=== PATIENT | female | born 1990 ===

== ENCOUNTER → 2017-07-03 | Outpatient (CLI) | payer SELFPAY | LOC: LAB 17:23 | PROVIDERS: ATTEND Emergency Medicine | DX: R30.0 Dysuria (principal) | CPT/HCPCS: 87086; 87088; 87186 ==

== ENCOUNTER 2018-06-24 10:58 | Emergency (ER) | payer BC ==
[2018-06-24] MEDS ORDERED: KETOROLAC TROMETHAMINE INJ/PF 30 MG/1 ML SDV IV ONE (12:23)
--- NOTE | 2018-06-24 12:38 | RADIOLOGY REPORT (SQ) ---
EXAM DESCRIPTION: PELVIS AP COMPLETED DATE/TIME: 06/24/2018 12:29 pm REASON FOR STUDY: SI joint pain COMPARISON: None. NUMBER OF VIEWS: One view TECHNIQUE: AP Pelvis LIMITATIONS: None. FINDINGS: MINERALIZATION: Normal. HIPS: No acute fracture or dislocation. No worrisome bone lesions. PELVIS AND SACRUM: No acute fracture or dislocation. No worrisome bone lesions. PUBIS AND ISCHIUM: No acute fracture. LOWER LUMBAR SPINE: No significant findings as visualized. SOFT TISSUES: No findings. OTHER: No other significant finding. IMPRESSION: NEGATIVE STUDY OF THE PELVIS. TECHNICAL DOCUMENTATION: JOB ID: [id number] SC-[id number] 2010 [employer]- All Rights Reserved Reading location - IP/workstation name: [email or web address]
--- NOTE | 2018-06-24 12:40 | RADIOLOGY REPORT (SQ) ---
EXAM DESCRIPTION: L SPINE WHOLE COMPLETED DATE/TIME: 06/24/2018 12:29 pm REASON FOR STUDY: back pain COMPARISON: None. NUMBER OF VIEWS: Five views including obliques. TECHNIQUE: AP, lateral, oblique, and sacral radiographic images acquired of the lumbar spine. LIMITATIONS: None. FINDINGS: There are 4 non rib-bearing lumbar type vertebra with lumbarization of S1. No spondylolys is or spondylolisthesis. The SI joints are symmetrical. IMPRESSION: No significant abnormality seen. TECHNICAL DOCUMENTATION: JOB ID: [id number] [id number] 2010 [employer]- All Rights Reserved Reading location - IP/workstation name: [email or web address]
[2018-06-24] MEDS ORDERED: HYDROMORPHONE HCL INJ/PF 2 MG/ML AMPULE IV ONE (13:10)
[2018-06-24] MEDS ORDERED: ONDANSETRON HCL INJ/PF 4 MG/2 ML SDV IV ONE (13:10)
[2018-06-24] MEDS ORDERED: LIDOCAINE 5% (700 MG) TRANSDERMAL ADH..PATCH TP ONE (13:24)
--- NOTE | 2018-06-24 15:57 | ER Document Report ---
ED General - General Chief Complaint: Low Back Pain Stated Complaint: FLANK PAIN Time Seen by Provider: 06/24/18 11:33 Mode of Arrival: Ambulatory Information source: Patient Notes: 27-year-old female presents to the emergency room low back pain radiating down the right leg. She was seen at her care and referred here possible DVT. 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 She does have lower lumbar pain. She does have deep pain down the right thigh and in the back of the leg and she will feel tingling into the lower foot on the right. She denies any urinary or fecal incontinence. She denies saddle anesthesia. Denies any motor weakness. TRAVEL OUTSIDE OF THE [place] IN LAST 30 DAYS: No - HPI Onset: Last week Onset/Duration: Gradual Quality of pain: Dull Severity: Moderate Pain Level: 3 Associated symptoms: denies: Chest pain, Headache, Shortness of breath Exacerbated by: Movement Relieved by: Remaining still Similar symptoms previously: Yes Recently seen / treated by doctor: Yes - Patient was evaluated in the urgent care today - Related Data Allergies/Adverse Reactions: montelukast [From Singulair] Adverse Reaction (Verified 06/24/18 11:04) Past Medical History - General Information source: Patient - Social History Smoking Status: Never Smoker Cigarette use (# per day): No Chew tobacco use (# tins/day): No Frequency of alcohol use: None Drug Abuse: None Lives with: Family Family History: None Patient has suicidal ideation: No Patient has homicidal ideation: No - Medical History Medical History: Negative Renal/ Medical History: Denies: Hx Peritoneal Dialysis Past Surgical History: Reports: Other - Mandible surgery Review of Systems - Review of Systems Constitutional: denies: Chills, Fever EENT: No symptoms reported Cardiovascular: No symptoms reported Respiratory: No symptoms reported Gastrointestinal: No symptoms reported Genitourinary: No symptoms reported Female Genitourinary: No symptoms reported Musculoskeletal: See HPI Skin: No symptoms reported Hematologic/Lymphatic: No symptoms reported Neurological/Psychological: Numbness, Tingling. denies: Weakness, Gait changes , Loss of power, Paralysis Physical Exam - Vital signs Vitals: Temp Pulse Resp BP Pulse Ox 98.2 F 108 H 16 130/82 H 100 06/24/18 11:09 06/24/18 11:09 06/24/18 11:09 06/24/18 11:09 06/24/18 11:09 Notes: Physical exam: GENERAL: A 27-year-old female, alert and oriented 3, complaining of low back pain radiating down the right leg. HEAD: Atraumatic, normocephalic. EYES: Pupils equal round and reactive to light, extraocular movements intact, sclera anicteric, conjunctiva are normal. ENT: TMs normal, nares patent, oropharynx clear without exudates. Moist mucous membranes. NECK: Normal range of motion, supple without obvious mass or JVD. LUNGS: Breath sounds clear to auscultation bilaterally and equal. No wheezes rales or rhonchi. HEART: Regular rate and rhythm without murmurs, rubs or gallops. ABDOMEN: Soft, normoactive bowel sounds. No tenderness to palpation. No guarding, no rebound. No masses appreciated. Back: Patient does have paraspinal tenderness in the lumbar region. EXTREMITIES: Positive straight leg raising on the right to 30. Patient has good pulses distally in the foot is warm. There is no calf swelling. NEUROLOGICAL: Cranial nerves II through XII grossly intact. Normal speech, moving all extremities. She has no saddle anesthesia, motor to the lower extremities is good. PSYCH: Normal mood, normal affect. SKIN: Warm, Dry, normal turgor, no rashes or lesions noted. Course - Re-evaluation Re-evalutation: 06/24/18 19:46 Patient has a lot of lower lumbar pain. She has had no fever, chills or recent illnesses. 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 They do appear very radicular in nature. I do not detect on my exam and he evidence of cord compression at this time. She has no saddle anesthesia and motor function to the lower extremities is good. X-rays of the lumbar area show no obvious deformities. She was treated with IV Toradol and IV Dilaudid. I discussed nonsteroidals with her and she is chosen ibuprofen (as opposed to steroids which she has had a bad reaction to in the past). I will also treated with Lidoderm patch and oxycodone and I had advised her to follow-up with her doctors at [facility] for referral to either back surgeon or physical therapy. As far as the issue of DVT: She was sent over to rule out a blood clot. Ultrasound of the lower extremity shows no evidence of blood clots. 06/24/18 19:49 - Vital Signs Vital signs: Temp Pulse Resp BP Pulse Ox 98.2 F 79 16 106/71 96 06/24/18 11:09 06/24/18 16:21 06/24/18 16:21 06/24/18 16:21 06/24/18 16:21 - Diagnostic Test Radiology reviewed: Image reviewed, Reports reviewed - X-rays of the lumbar spine show no bony lesions. X-rays of the pelvis show no bony lesions. Venous Dopplers show no DVT. Discharge - Discharge Clinical Impression: Acute low back pain, Radiculopathy Condition: Stable Disposition: HOME, SELF-CARE Instructions: Low Back Pain ([facility]), Oral Narcotic Medication ([facility]), Pain Medication Injection ([facility]), Warm Packs ([facility]) Additional Instructions: As we discussed x-rays of the lumbar spine, pelvis and right hip look good. The ultrasound report showed no evidence of blood clots. I recommend taking ibuprofen: 400-800 mg every 6 hours for the next few days. Take oxycodone for pain. Take Tylenol every 4 hours in addition. I recommend following up with [facility] for pleural to a back surgeon or patient lumbar MRI. Return to the emergency room for any urinary retention or urinary incontinence, numbness to the inside of the legs, motor weakness. Prescriptions: Oxycodone HCl 5 mg PO Q6HP PRN #25 tablet PRN Reason: Lidocaine [Lidoderm 5% (700 mg) Transdermal Patch] 1 patch TP DAILY #14 adh..patch Forms: Return to Work Referrals: JOSE SCHAEFER PA-C [Primary Care Provider] - 06/27/18
[2018-06-24 16:22] VITALS: BP 106/71
--- NOTE | 2018-06-25 08:52 | XCELERA REPORT ---
[address] [place] [facility] [address] Lower Extremity Venous Evaluation Procedure: Color flow and duplex imaging of the veins of the right lower extremity as well as the left Common Femoral vein. Right Sided Venous Evaluation Normal vessel filling wall to wall, compression and augmentation as well as Colour flow down to the infrageniculate veins. Left Sided Venous Evaluation The left common femoral vein is fully compressible. Spontaneous and phasic flow is present in the left common femoral vein. Interpretation Summary No duplex evidence of DVT or obstruction in the right lower extremity nor in the left Common Femoral vein. Name: PB CARR Age: 27 yrs Gender: Female : 1990 Patient Status: Emergency Patient Location: ER Study Date: 06/24/2018 12:54 PM Reason For Study: rle pain Ordering Physician: VINCENT LUNA Performed By: Kenia Dyer : VINCENT LUNA > Everton Kilpatrick
== END 2018-06-24 16:25 | disposition home or self-care (01) ==
LOC: ER 10:58
DX: M54.5 Low back pain (principal); M54.10 Radiculopathy, site unspecified
CPT/HCPCS: 99283; 96374; 96375; 93971 ×2; 72110; 72170; J1885; J1170; J2405

== ENCOUNTER 2018-08-26 02:02 | Emergency (ER) | payer BC, OTHER ==
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
[2018-08-26 02:19] VITALS: BP 126/69
[2018-08-26] MEDS ORDERED: EMTRICITABINE/TENOFOVIR 200-300 MG TAB (3 TAB/ER DISP) PO PRN (03:06)
[2018-08-26] MEDS ORDERED: RALTEGRAVIR 400 MG TAB (6 TAB/ER DISP) PO PRN (03:07)
[2018-08-27 08:38] LABS: HEPATITIS A AB IGM Negative (Negative); HEPATITIS B CORE AB IGM Negative (Negative); HEPATITS B SURFACE ANTIGEN Negative (Negative)
[2018-08-27 10:31] LABS: HEPATITIS C VIRUS ANTIBODY <0.1 s/co ratio (0.0-0.9)
== END 2018-08-26 03:00 | disposition home or self-care (01) ==
LOC: ER 02:02
DX: Z77.21 Contact with and (suspected) exposure to potentially hazardous body fluids (principal); Y99.0 Civilian activity done for income or pay
CPT/HCPCS: 36415; 80074; 84703; 86701; 99283